=== PATIENT | female | born 1990 | race African-American/Black ===

== ENCOUNTER 2019-03-03 11:57 | Emergency (ER) | payer OTHER, SELFPAY ==
[~2019-03-03] VITALS: Ht 162.6 cm; Wt 106.1 kg
[2019-03-03 12:57] VITALS: BP 118/65
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
== END 2019-03-03 14:10 | disposition home or self-care (01) ==
LOC: ER 11:57
DX: S33.5XXA Sprain of ligaments of lumbar spine, initial encounter (principal); S83.92XA Sprain of unspecified site of left knee, initial encounter; Y08.89XA Assault by other specified means, initial encounter; Y93.89 Activity, other specified; Y92.89 Other specified places as the place of occurrence of the external cause; Y99.8 Other external cause status
CPT/HCPCS: 72100; 73562; 99284